=== PATIENT | male | born 1980 | race Caucasian/White ===

== ENCOUNTER 2023-12-13 03:25 | Emergency (ER) | payer OTHER, SELFPAY ==
[2023-12-13] VITALS (9 sets, daily range): BP systolic 141–179; BP diastolic 74–105; PULSE 112–124; RESP 12–22; TEMP 36.8–37.6; O2SAT 92–100
--- NOTE | ~2023-12-13 | XR_ITS ---
XR ankle LT min 3V DATE: 12/13/2023 04:08 INDICATION: Ankle injury, visible deformity. TECHNIQUE: . Limited three-view examination COMPARISON: None FINDINGS: There is posterolateral dislocation at the tibiotalar joint. There is linear oblique fractu re through the lateral malleolus and apparent posterolateral distal tibial fracture. The medial malle olus appears intact. Prominent soft tissue swelling is noted. Plantar and posterior calcaneal enthesopathy. IMPRESSION: Fracture/dislocation of the ankle, soft tissue swelling Reviewed, dictated and finalized at location A. DIRECTOR
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
--- NOTE | ~2023-12-13 | XR_ITS ---
XR ankle LT min 3V DATE: 12/13/2023 06:19 INDICATION: Postoperative reduction examination; fracture/dislocation of ankle TECHNIQUE: 3 views COMPARISON: 12/13/2023 left ankle FINDINGS: There is partial reduction of the dislocation of the tibiotalar joint with approximately 6 mm residual lateral tibiotalar subluxation. Linear oblique fracture of the lateral malleolus with mild lateral displacement of the distal fragmen t. Posterolateral distal tibial intra-articular fracture, minimally displaced. IMPRESSION: Approximately 6 mm residual lateral tibiotalar subluxation Lateral and posterior malleolar fractures Reviewed, dictated and finalized at location A. ODIAL AIDE
[2023-12-13] MEDS: ACETAMINOPHEN 500 MG TABLET 1000 MG PO (04:06)
[2023-12-13] MEDS: HYDROmorphone HCL INJ (*CRX) 1 MG/ML SYR 0.5 MG IV PUSH (04:07)
[2023-12-13] MEDS: SODIUM CHLORIDE 0.9% IV 1,000 ML 999 ML IV CONT ×2 (04:17→04:39)
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
[2023-12-13] MEDS: KETOROLAC 15 MG/ML VIAL (*BKC) IV PUSH (05:57)
== END 2023-12-13 05:45 | disposition home or self-care (01) ==
PROVIDERS: Emergency Provider Emergency Medicine
DX: S82.62XA Displaced fracture of lateral malleolus of left fibula, initial encounter for closed fracture (principal); Y04.0XXA Assault by unarmed brawl or fight, initial encounter; Y92.59 Other trade areas as the place of occurrence of the external cause
CPT/HCPCS: 27788; 70450; 73610; 96374; 96375; 99285; A9270; J1170; J1885; J7030